=== PATIENT | female | born 1975 | race Caucasian/White ===

== ENCOUNTER 2017-05-16 07:01 | Day surgery (SDC) | payer BC, OTHER ==
[~2017-05-16 07:01] MED LIST: RINGER'S SOLUTION,LACTATED 1,000 ML IV PRN
[2017-05-16] MEDS ORDERED: RINGER'S SOLUTION,LACTATED 1,000 ML IV ONE (08:00)
--- NOTE | 2017-05-16 09:03 | OR ---
Operative Report - Dictated Report Narrative: DATE OF PROCEDURE: 05/16/2017 INDICATION: A 41-year-old with long history of chronic dysmenorrhea and menometrorrhagia and fibroid uterus PREOPERATIVE DIAGNOSIS: Dysmenorrhea, Menometrorrhagia POSTOPERATIVE DIAGNOSIS: Same, uterine syncytial band, multiple intramural fibroids, grade 3 uterine prolapse PROCEDURE: Hysteroscopy, D&C, Uterine syncytial band resection SURGEON: Jaja Watson D.O. FISH CHECKER: None ANESTHESIA: IV sedation, Paracervical block ESTIMATED BLOOD LOSS: minimal URINE OUTPUT: not recorded FLUID REPLACEMENT: 550 mL FINDINGS: Uterus sounded to 8 cm, uterine syncytial band near the right cornua in an AP direction from the 7 to the 11 o'clock position. Uterine prolapse with apical descent to the introitus. SPECIMEN(S): Endometrial curettings syncytial band fragments TECHNIQUE: The patient was taken to the operating room and placed in dorsal lithotomy position after adequate IV sedation was obtained. After sterile prep and drape, the anterior lip of the cervix was grasped with a long Allis clamp. A paracervical block was given using a 1% lidocaine with epinephrine solution. The uterus sounded to 8 cm. The 5 mm hysteroscope was inserted into the uterine cavity with findings as noted above. Using hysteroscopic scissors, the syncytial band was transected at the anterior and posterior attachments. Using a #2 curet, the entire uterine cavity was curettaged. The hysteroscope was reinserted noting thorough sampling of the entire uterine cavity and yazidi of normal anatomy. Sponge, lap, instrument, needle count correct x 2. DISPOSITION: The patient was transferred to the post anesthesia care unit in good condition.
[2017-05-16] MEDS ORDERED: RINGER'S SOLUTION,LACTATED 1,000 ML IV PRN (09:04)
[2017-05-16] MEDS ORDERED: MORPHINE SULFATE 2 MG/ML DISP.SYRIN IV PRN (09:05)
[2017-05-16] MEDS ORDERED: oxyCODONE HCL/ACETAMINOPHEN 1 TAB TABLET PO PRN (09:06)
[2017-05-16] MEDS ORDERED: IBUPROFEN 800 MG TABLET PO PRN (09:07)
[2017-05-16 10:06] VITALS: BP 128/74
== END 2017-05-16 07:02 | disposition home or self-care (01) ==
LOC: AMB 07:01
PROVIDERS: ATTEND Obstetrics & Gynecology
PROC: 0UDB7ZX Extraction of Endometrium, Via Natural or Artificial Opening, Diagnostic (ICD-10-PCS; 2017-05-16)
PROC: 0UJD8ZZ Inspection of Uterus and Cervix, Via Natural or Artificial Opening Endoscopic (ICD-10-PCS; 2017-05-16)
PROC: 0UN98ZZ Release Uterus, Via Natural or Artificial Opening Endoscopic (ICD-10-PCS; principal; 2017-05-16 08:00)
DX: D25.1 Intramural leiomyoma of uterus (principal); N85.6 Intrauterine synechiae; I10 Essential (primary) hypertension; Z68.1 Body mass index [BMI] 19.9 or less, adult